=== PATIENT | male | born 1960 | race Caucasian/White ===

== ENCOUNTER → 2017-08-20 | Outpatient (CLI) | payer OTHER ==
[~2017-08-20] MED LIST: CENTRUM SILVER1 EAC4 PO; CIPRO500 MG; FISH OIL 1,001000 MG PO; HCTZ/LISINOPRIL PO; HYDROCODONE-AP1 EAC6; LOW DOSE ASPIRI81 M1 PO; MEVACOR40 MG PO; NEURONTIN 300M300 M2 PO; OMEPRAZOLE 20 M20 M1 PO; PREDNISONE 10 M10 MG PO; TOPROL XL100 MG PO
== END ==
LOC: M.ULTRA 08-02 16:00
DX: E04.1 Nontoxic single thyroid nodule (principal)

== ENCOUNTER → 2019-04-28 | Outpatient (CLI) | payer OTHER | LOC: M.RAD 14:07 | DX: M79.674 Pain in right toe(s) (principal); M79.671 Pain in right foot ==